=== PATIENT | male | born 1980 | race Caucasian/White ===

== ENCOUNTER 2024-06-23 13:37 | Emergency (ER) | payer MEDICAID ==
[~2024-06-23] VITALS: Ht 175.3 cm; Wt 123.8 kg
[2024-06-23 13:41] VITALS: O2SAT 98
[2024-06-23 13:57] VITALS: BP 123/87; PULSE 86; RESP 18; TEMP 98.3; O2SAT 97
[2024-06-23] MEDS ORDERED: AMOX1TAB16 MT (15:11)
[2024-06-23] MEDS: TETANUS, DIPHTHERIA, PERTUSSIS VAC/PF 0.5ML (>10YR OLD) IM ONE (15:44)
== END 2024-06-23 17:11 | disposition home or self-care (01) ==
LOC: ER 13:37
DX: S51.812A Laceration without foreign body of left forearm, initial encounter (principal); W54.0XXA Bitten by dog, initial encounter; Y93.89 Activity, other specified; Y92.89 Other specified places as the place of occurrence of the external cause; Y99.8 Other external cause status
CPT/HCPCS: 90471; 90715; 99283